=== PATIENT | female | born 1985 | race Caucasian/White ===

== ENCOUNTER 2024-11-10 15:03 | Inpatient (IN) | payer SELFPAY ==
[2024-11-10] VITALS (12 sets, daily range): BP systolic 94–150; BP diastolic 63–125; PULSE 77–127; RESP 10–28; TEMP 36.89184; O2SAT 86–97
[~2024-11-10] VITALS: Ht 172.7 cm; Wt 120.0 kg
[2024-11-10] MEDS: SODIUM CHLORIDE 0.9% (SEPSIS BOLUS) IV ONE (15:45)
[2024-11-10] MEDS ORDERED: NOREPINEPHRINE 32 MG in DEXT 5% WATER 218 ML IV STA (16:05)
[2024-11-10 16:23] LABS: BASOPHILS % 0.7 % (0.0-2.0); DIFFERENTIAL COMMENT 0; EOSINOPHILS % 0.3 % (0.0-5.0); HEMATOCRIT. 43.5 % (36.0-48.0); HEMOGLOBIN. 13.2 g/dL (12.0-16.0); LYMPHOCYTES % 42.4 % (20.0-50.0); MEAN CORPUSCULAR HEMOGLOBIN 26.3 pg (28.0-32.0); MEAN CORPUSCULAR HGB CONC 30.4 g/dL (31.0-37.0); MEAN CORPUSCULAR VOLUME 86.5 fL (81.0-99.0); MEAN PLATELET VOLUME 9.9 fl (7.4-10.4); MONOCYTES % 5.4 % (2.0-8.0); NEUTROPHILS % 51.2 % (40.0-76.0); PLATELET 159 x1000/uL (130-400); RED BLOOD CELL COUNT 5.02 mill/uL (4.2-5.4); RED CELL DISTRIBUTION WIDTH 15.3 % (11.6-14.6); WHITE BLOOD COUNT 10.9 x1000/uL (4.5-11.0)
[2024-11-10 16:28] LABS: CHLORIDE 89 mEq/L (98-107); POTASSIUM 3.3 mEq/L (3.5-5.1); SODIUM 133 mEq/L (136-145)
[2024-11-10 16:28] LABS: BG CARBOXYHEMOGLOBIN 0.2 % (0.5-1.5); BG DEOXYHEMOGLOBIN 12.2 % (0.0-5.0); BG FRACTION INSPIRED OXYGEN 100; BG HCO3 ACT 20.6 mmol/L (21.0-28.0); BG METHEMOGLOBIN 0.4 % (0.5-1.5); BG OXYGEN SATURATION 87.7 % (94.0-98.0); BG OXYHEMOGLOBIN 87.2 % (94.0-98.0); BG PCO2 92.1 mmHg (32.0-45.0); BG PH 6.968 (7.350-7.450); BG PO2 81.3 mmHg (83.0-108.0); BG SAMPLE SITE RIGHT BRACHIAL; BG VENT MODE VENT - AC
[2024-11-10 16:29] LABS: CALCIUM 8.2 mg/dL (8.7-10.4); CARBON DIOXIDE 20 mEq/L (21-32)
[2024-11-10 16:31] LABS: INR 1.1; PARTIAL THROMBOPLASTIN TIME 66.9 sec (23.4-31.0); PROTHROMBIN TIME 12.5 sec (9.6-11.0)
[2024-11-10 16:34] LABS: CREATININE 1.8 mg/dL (0.6-1.0); UREA NITROGEN BLOOD 16 mg/dL (9-23)
[2024-11-10 16:36] LABS: ALANINE AMINOTRANSFERASE 375 IU/L (10-49); ALBUMIN 3.3 g/dL (3.2-4.8); ASPARTATE AMINOTRANSFERASE 563 IU/L (<34); BETA HYDROXYBUTYRATE 0.3 mMol/L (0.0-0.3); BILIRUBIN TOTAL 0.2 mg/dL (0.1-1.0); CREATINE KINASE 174 IU/L (34-145); PROTEIN TOTAL 5.8 g/dL (6.0-8.3)
[2024-11-10 16:38] LABS: BILIRUBIN DIRECT < 0.1 mg/dL (<=3.0); ETHANOL BLOOD < 10 mg/dL (<10)
[2024-11-10 16:40] LABS: GLUCOSE 683 mg/dL (70-105)
[2024-11-10 16:41] LABS: TROPONIN I HIGH SENSITIVITY 166 ng/L (3.0-34)
[2024-11-10] MEDS: NOREPINEPHRINE 32 MG in DEXT 5% WATER 218 ML IV NR (16:42)
[2024-11-10 16:45] LABS: LACTIC ACID 17.3 mmol/L (0.4-2.0)
[2024-11-10] MEDS ORDERED: SODIUM PHOSPHATE 15 MMOL in SODIUM CHLORIDE 0.9% 245 ML IV PRN ×2 (16:45→17:30)
[2024-11-10] MEDS ORDERED: BLOOD SUGAR DIAGNOSTIC STRIP TEST SCH (16:45)
[2024-11-10] MEDS ORDERED: POTASSIUM CHLORIDE 40 MEQ in SODIUM CHLORIDE 0.9% 230 ML IV PRN ×2 (16:45→17:30)
[2024-11-10] MEDS: PIPERACILLIN/TAZO 3.375G/50ML 50 ML IV STA (16:55)
[2024-11-10] MEDS: VANCOMYCIN 1G PREMIX 200 ML IV SCH (17:12)
[2024-11-10] MEDS: TENECTEPLASE 50MG/VIAL (FOR MI OR PE) IV ONE (17:13)
[2024-11-10] MEDS: AMIODARONE 150MG/100ML D5W 100 ML IV ONE (17:18)
[2024-11-10] MEDS: DEXT 5%/0.9% NACL 1,000 ML IV SCH (17:30)
[2024-11-10] MEDS ORDERED: BLOOD SUGAR DIAGNOSTIC STRIP TEST PRN (17:30)
[2024-11-10] MEDS ORDERED: DEXTROSE 50% WATER 50ML SYRINGE IV PRN (17:30)
[2024-11-10] MEDS ORDERED: MAGNESIUM 2 G PREMIX 50 ML IV PRN (17:30)
[2024-11-10] MEDS ORDERED: KCL 20MEQ/100ML PREMIX 100 ML IV PRN (17:30)
[2024-11-10] MEDS: BLOOD SUGAR DIAGNOSTIC STRIP TEST SCH (17:43)
[2024-11-10] MEDS: SODIUM BICARBONATE 8.4% 50MEQ/50ML SYR IV NR (17:43)
[2024-11-10 17:47] LABS: BG CARBOXYHEMOGLOBIN 0.3 % (0.5-1.5); BG DEOXYHEMOGLOBIN 8.8 % (0.0-5.0); BG FRACTION INSPIRED OXYGEN 100; BG HCO3 ACT 16.6 mmol/L (21.0-28.0); BG METHEMOGLOBIN 0.4 % (0.5-1.5); BG OXYGEN SATURATION 91.1 % (94.0-98.0); BG OXYHEMOGLOBIN 90.5 % (94.0-98.0); BG PCO2 42.9 mmHg (32.0-45.0); BG PH 7.205 (7.350-7.450); BG SAMPLE SITE LEFT BRACHIAL; BG VENT MODE VENT - AC
[2024-11-10] MEDS: INSULIN REGULAR (HUMULIN R) 1000UNITS/10ML VIAL IV NR (17:53)
[2024-11-10] MEDS: SODIUM CHLORIDE 0.9% 1,000 ML IV SCH (17:55)
[2024-11-10 17:58] LABS: CHLORIDE 96 mEq/L (98-107); POTASSIUM 3.8 mEq/L (3.5-5.1); SODIUM 135 mEq/L (136-145)
[2024-11-10 17:59] LABS: CALCIUM 7.2 mg/dL (8.7-10.4); CARBON DIOXIDE 18 mEq/L (21-32)
[2024-11-10] MEDS ORDERED: INSULIN REGULAR 100U/100ML PMX 100 ML IV SCH (18:00)
[2024-11-10 18:04] LABS: CREATININE 1.8 mg/dL (0.6-1.0); UREA NITROGEN BLOOD 18 mg/dL (9-23)
[2024-11-10 18:10] LABS: GLUCOSE 617 mg/dL (70-105); PHOSPHORUS 8.7 mg/dL (2.5-4.9)
[2024-11-10 18:11] LABS: TROPONIN I HIGH SENSITIVITY 8172 ng/L (3.0-34)
[2024-11-10] MEDS ORDERED: IPRATROPIUM/ALBUTEROL 0.5-3(2.5)MG/3ML NEB HHN PRN ×2 (18:15→19:00)
[2024-11-10] MEDS: SODIUM BICARBONATE 150 MEQ in SODIUM CHLORIDE 0.45% 850 ML IV SCH (18:16)
[2024-11-10] MEDS: INSULIN REGULAR 100U/100ML PMX 100 ML IV SCH (18:17)
[2024-11-10] MEDS ORDERED: DOCUSATE SODIUM 100MG CAPSULE PO PRN (19:00)
[2024-11-10] MEDS ORDERED: ONDANSETRON HCL 4MG/2ML INJ IV PRN (19:00)
[2024-11-10] MEDS ORDERED: GUAIFENESIN 200MG/10ML SUGAR FREE UDC PO PRN (19:00)
[2024-11-10] MEDS ORDERED: ACETAMINOPHEN 325MG TABLET PO PRN ×2 (19:00)
[2024-11-10] MEDS ORDERED: CLONIDINE 0.1MG TABLET PO PRN (19:00)
[2024-11-10] MEDS ORDERED: LEVETIRACETAM 500MG PREMIX 100 ML IV ONE (20:30)
[2024-11-10] MEDS ORDERED: LEVETIRACETAM 500MG PREMIX 100 ML IV SCH (21:00)
[2024-11-10] MEDS ORDERED: ENOXAPARIN 120MG/0.8ML SYR SUBCUT SCH (21:00)
[2024-11-10 21:25] LABS: CHLORIDE 100 mEq/L (98-107); SODIUM 136 mEq/L (136-145)
[2024-11-10 21:26] LABS: CALCIUM 6.8 mg/dL (8.7-10.4); CARBON DIOXIDE 20 mEq/L (21-32)
[2024-11-10 21:31] LABS: UREA NITROGEN BLOOD 21 mg/dL (9-23)
[2024-11-10 21:33] LABS: PHOSPHORUS 2.5 mg/dL (2.5-4.9)
[2024-11-10] MEDS ORDERED: IOHEXOL-350 100 ML BOTTLE ONE (21:57)
[2024-11-10] MEDS ORDERED: PIPERACILLIN/TAZO 3.375G/50ML 50 ML IV SCH (22:00)
[2024-11-10] MEDS ORDERED: DOPAMINE 400MG/250ML PREMIX 250 ML IV ONE (22:00)
[2024-11-10] MEDS ORDERED: NOREPINEPHRINE 32 MG in DEXT 5% WATER 218 ML IV PRN ×2 (22:00→22:15)
[2024-11-10] MEDS ORDERED: DOPAMINE 400MG/250ML PREMIX 250 ML IV PRN (22:00)
[2024-11-10] MEDS ORDERED: EPINEPHRINE 5 MG in DEXT 5% WATER 245 ML IV PRN ×2 (22:00→22:15)
[2024-11-10] MEDS ORDERED: VASOPRESSIN 20 UNIT in SODIUM CHLORIDE 0.9% 99 ML IV PRN ×2 (22:00→22:15)
[2024-11-10 22:05] LABS: POTASSIUM 2.6 mEq/L (3.5-5.1)
[2024-11-10 22:06] LABS: GLUCOSE 504 mg/dL (70-105)
[2024-11-10 22:08] LABS: TROPONIN I HIGH SENSITIVITY 43872 ng/L (3.0-34)
[2024-11-10] MEDS ORDERED: NOREPINEPHRINE 8MG/250ML PMX 250 ML IV ONE (22:15)
[2024-11-10] MEDS ORDERED: MORPHINE SULFATE 4 MG/ML INJ (FOR IV/IM USE) IV PRN (22:45)
[2024-11-10] MEDS ORDERED: GLYCOPYRROLATE 0.2 MG/ML 2ML VIAL IV PRN (23:00)
[2024-11-10] MEDS ORDERED: GLYCOPYRROLATE 0.2 MG/ML 2ML VIAL IV NR (23:00)
[2024-11-10] MEDS ORDERED: GLYCOPYRROLATE 0.2MG/ML VIAL 5ML IV PRN (23:00)
[2024-11-10] MEDS ORDERED: GLYCOPYRROLATE 0.2MG/ML VIAL 5ML IV NR (23:00)
[2024-11-10] MEDS: MORPHINE SULFATE 4 MG/ML INJ (FOR IV/IM USE) IV NR (23:25)
[2024-11-11] MEDS ORDERED: LORAZEPAM 2MG/ML INJ IV PRN
[2024-11-11] MEDS ORDERED: PANTOPRAZOLE SODIUM 40 MG/VIAL IV SCH (09:00)
[2024-11-11] MEDS ORDERED: VANCOMYCIN 1GM/200ML PMX (BAXTER) IV SCH (17:00)
== END 2024-11-11 00:28 | DRG 420 ==
LOC: ER 15:03 → MICUSO 17:44 → EDBEDREQTM 17:45 → EDBEDREQ 17:45
PROVIDERS: ADMIT Internal Medicine; ATTEND Internal Medicine
PROC: 5A12012 Performance of Cardiac Output, Single, Manual (ICD-10-PCS; principal; 2024-11-10)
PROC: 5A1935Z Respiratory Ventilation, Less than 24 Consecutive Hours (ICD-10-PCS; 2024-11-10)
PROC: 0BH17EZ Insertion of Endotracheal Airway into Trachea, Via Natural or Artificial Opening (ICD-10-PCS; 2024-11-10)
DX: E11.11 Type 2 diabetes mellitus with ketoacidosis with coma (principal); I46.9 Cardiac arrest, cause unspecified; J96.01 Acute respiratory failure with hypoxia; J69.0 Pneumonitis due to inhalation of food and vomit; K72.00 Acute and subacute hepatic failure without coma; G93.40 Encephalopathy, unspecified; D68.9 Coagulation defect, unspecified; I48.92 Unspecified atrial flutter; E66.01 Morbid (severe) obesity due to excess calories; Z68.41 Body mass index [BMI] 40.0-44.9, adult; E87.6 Hypokalemia; F32.A Depression, unspecified; F41.9 Anxiety disorder, unspecified; I49.01 Ventricular fibrillation; J45.909 Unspecified asthma, uncomplicated; K76.0 Fatty (change of) liver, not elsewhere classified; N17.9 Acute kidney failure, unspecified; R56.9 Unspecified convulsions; Z79.4 Long term (current) use of insulin
CPT/HCPCS: 31500; 36415; 36600; 71045; 71275; 80048; 80076; 80320; 82010; 82375; 82550; 82805; 82962; 83605; 83735; 83880; 83930; 84100; 84145; 84484; 85025; 86850; 86900; 92950; 93005; 94002; 94070; 94664; 98960; 99291; J0282; J1265; J1815; J2270; J2543; J3101; J3370; J3490; J7030; J7060; Q9967; G0480